=== PATIENT | female | born 1935 | race Caucasian/White ===

== ENCOUNTER 2018-03-17 10:55 | Emergency (ER) | payer MEDICARE, OTHER ==
[2013-11-21 07:31] VITALS: BMI 22.5
[~2018-03-17 10:55] MED LIST: CALTRATE-600600 MG PO; NORCO 10/325 TA1 TA1 PO; TOPROL XL25 MG PO; VITAMIN D31000 UNIT PO; VYTORIN 10-20 M1 TAB PO
== END 2018-03-17 13:25 | disposition home or self-care (01) ==
LOC: D.ER 10:55
DX: J06.9 Acute upper respiratory infection, unspecified (principal); J20.9 Acute bronchitis, unspecified; I10 Essential (primary) hypertension

== ENCOUNTER 2018-03-26 00:58 | Observation (INO) | payer MEDICARE, OTHER ==
[~2018-03-26] VITALS: Ht 152.4 cm; Wt 54.3 kg
[2018-03-26 01:21] LABS: BASOPHILS 0.5 % (0-2); HEMOGLOBIN 13.6 g/dL (12-16); IMMATURE GRANULOCYTES 0.1 % (0-5); LYMPHOCYTES 28.4 % (15-50); MCH 32.9 pg (26.0-34.0); MCHC 34.9 g/dL (31.0-37.0); MCV 94.2 fL (80.0-100.0); MEAN PLATELET VOLUME 9.1 fL (7.4-10.4); MONOCYTES 9.6 % (2-11); NEUTROPHILS 60.4 % (40-80); PLATELET COUNT 208 10x3/uL (130-400); RBC 4.14 10x6/uL (4.00-5.40); RDW 12.3 % (11.5-14.5); WBC 7.8 10x3/uL (4.8-10.8)
[2018-03-26 01:34] LABS: ALBUMIN 3.5 g/dL (3.4-5.0); ALKALINE PHOSPHATASE 50 U/L (46-116); ALT (SGPT) 23 U/L (10-68); BILIRUBIN - TOTAL 0.62 mg/dL (0.2-1.3); CALC OSMOLALITY 284 mosm/kg (275-300); CALCIUM 9.7 mg/dL (8.5-10.1); CARBON DIOXIDE 27.3 mmol/L (21.0-32.0); CHLORIDE - SERUM 106 mmol/L (98-107); CREATININE - SERUM 0.7 mg/dL (0.6-1.3); GLUCOSE 120 mg/dL (74-106); POTASSIUM - SERUM 3.4 mmol/L (3.5-5.1); PROTEIN - SERUM 6.8 g/dL (6.4-8.2); SODIUM 142 mmol/L (136-145); UREA NITROGEN 14 mg/dL (7-18); eGFR NON AFRICAN AMERICAN 85 mL/min (90-120)
[2018-03-26 01:46] LABS: CHOL - HDL RATIO 2.5 ratio (2.3-4.1); CHOLESTEROL, TOTAL 185 mg/dL (0-200); CREATINE KINASE 38 UL (21-215); HDL CHOLESTEROL 74 mg/dL (32-96); LDL CHOLESTEROL 87 mg/dL (0-100); LDL-HDL RATIO 1.2 ratio (1.5-3.5); TRIGLYCERIDE 124 mg/dL (30-200)
[2018-03-26 01:47] LABS: TROPONIN-I < 0.017 ng/mL (0.000-0.060)
[2018-03-26] MEDS ORDERED: ZOCOR40 MG PO (03:59)
[2018-03-26] MEDS ORDERED: LOPRESSOR25 MG PO (03:59)
[2018-03-26 04:26] VITALS: BP 154/85; BMI 23.2
[2018-03-26 04:45] LABS: CREATINE KINASE 38 UL (21-215); TROPONIN-I < 0.017 ng/mL (0.000-0.060)
[2018-03-26 08:27] VITALS: BP 130/70
[2018-03-26 09:38] LABS: CREATINE KINASE 32 UL (21-215)
[2018-03-26 09:39] LABS: TROPONIN-I < 0.017 ng/mL (0.000-0.060)
[2018-03-26 12:15] VITALS: BP 153/83
[2018-03-26 14:52] VITALS: Ht 152.4 cm; Wt 54.3 kg
[2018-03-26 15:42] VITALS: BP 149/82
[2018-03-26 16:17] LABS: CREATINE KINASE 37 UL (21-215); MAGNESIUM - SERUM 2.2 mg/dL (1.8-2.4)
[2018-03-26 16:20] LABS: TROPONIN-I < 0.017 ng/mL (0.000-0.060)
[2018-03-26 17:11] LABS: APPEARANCE CLEAR (CLEAR); BILIRUBIN NEGATIVE (NEGATIVE); COLOR YELLOW (YELLOW); GLUCOSE NEGATIVE (NEGATIVE); KETONE SMALL mg/dL (NEGATIVE); NITRITE NEGATIVE (NEGATIVE); PROTEIN NEGATIVE (NEGATIVE); UROBILINOGEN NORMAL (NORMAL)
[2018-03-26 20:30] VITALS: BP 117/77
[2018-03-27 01:26] VITALS: BP 125/77
[2018-03-27 05:37] VITALS: BP 122/67
[2018-03-27 07:08] LABS: BASOPHILS 0.3 % (0-2); EOSINOPHILS 0.9 % (0-7); HEMATOCRIT 43.4 % (36.0-48.0); IMMATURE GRANULOCYTES 0.2 % (0-5); LYMPHOCYTES 26.7 % (15-50); MCHC 34.6 g/dL (31.0-37.0); MCV 95.6 fL (80.0-100.0); MEAN PLATELET VOLUME 9.5 fL (7.4-10.4); MONOCYTES 6.9 % (2-11); PLATELET COUNT 220 10x3/uL (130-400); RBC 4.54 10x6/uL (4.00-5.40); RDW 12.5 % (11.5-14.5); WBC 9.9 10x3/uL (4.8-10.8)
[2018-03-27 07:30] LABS: ANION GAP 13.8 mmol/L (8-16); CALCIUM 9.7 mg/dL (8.5-10.1); CARBON DIOXIDE 26.6 mmol/L (21.0-32.0); CREATININE - SERUM 0.8 mg/dL (0.6-1.3); POTASSIUM - SERUM 3.4 mmol/L (3.5-5.1)
[2018-03-27 08:53] VITALS: BP 197/62
[2018-03-27] MEDS ORDERED: ASPIRIN325 MG PO (09:05)
[2018-03-27] MEDS ORDERED: KLONOPIN0.5 MG PO (09:06)
== END 2018-03-27 12:54 | disposition home or self-care (01) ==
LOC: D.ER 00:58 → OBSVTIME 03:08 → D.M2 03:08
PROVIDERS: Family Medicine; Internal Medicine Nephrology
DX: R07.9 Chest pain, unspecified (principal); R00.2 Palpitations; I10 Essential (primary) hypertension; E03.9 Hypothyroidism, unspecified; E78.5 Hyperlipidemia, unspecified; E87.6 Hypokalemia